=== PATIENT | female | born 1960 | race Hispanic/Latino ===

== ENCOUNTER → 2020-05-16 | Emergency (ER) | payer SELFPAY ==
[~2020-05-16] MED LIST: Cyclobenzaprine 10 MG TAB ONE; Ketorolac Tromethamine 30 MG/ML VIAL ONE
--- NOTE | 2020-05-16 16:07 | RAD ---
EXAM: XR Lumbar Spine 2 Or 3 View PROVIDED CLINICAL HISTORY: Back pain COMPARISON: None FINDINGS: 5 nonrib-bearing lumbar-type vertebral bodies are demonstrated. Bilateral pedicle screws and vertical interconnecting rods span L4-5 with intervening intervertebral disc device and laminectomy change. No evidence for hardware loosening or migration. The lateral view is obliqued, limiting evaluation fo r lumbar alignment. Vertebral body heights appear preserved. Pedicles appear intact. SI joints appear maintained. IMPRESSION: No evidence for an acute osseous abnormality.
== END ==
LOC: ERS 15:28
DX: M54.5 Low back pain (principal); G89.29 Other chronic pain
CPT/HCPCS: 72100; 96372; J1885